=== PATIENT | female | born 1995 | race African-American/Black ===

== ENCOUNTER 2017-08-11 12:54 | Emergency (ER) | payer MEDICAID, OTHER ==
[2017-08-11 14:56] LABS: ADD MAN DIFF? NO
[2017-08-11] MEDS: KETOROLAC 30 MG INJ IV (15:02)
[2017-08-11] MEDS: DIPHENHYDRAMINE 50 MG INJ IV (15:02)
[2017-08-11] MEDS: METOCLOPRAMIDE 10 MG INJ IV (15:02)
[2017-08-11 15:03] LABS: BASOPHILS % 0.4 % (0.0-2.0); EOSINOPHILS # 0.1 10^3/ul (0.0-0.5); EOSINOPHILS % 0.5 % (0.0-7.0); HEMOGLOBIN 14.8 g/dl (12.0-16.0); LYMPHOCYTES # 1.6 10^3/ul (0.8-2.9); LYMPHOCYTES % 17.5 % (15.0-51.0); MEAN CORPUSCULAR HEMOGLOBIN 27.7 pg (29.0-33.0); MEAN CORPUSCULAR HGB CONC 32.9 g/dl (32.0-37.0); MEAN CORPUSCULAR VOLUME 84.1 fl (82.0-101.0); MEAN PLATELET VOLUME 11.3 fl (7.4-10.4); MONOCYTE # 0.7 10^3/ul (0.3-0.9); MONOCYTES % 7.1 % (0.0-11.0); NEUTROPHIL # 6.8 10^3/ul (1.6-7.5); NEUTROPHILS % 74.2 % (39.0-77.0); PLATELET COUNT 259 10^3/UL (140-415); RED BLOOD COUNT 5.35 10^6/ul (4.20-5.40); RED CELL DISTRIBUTION WIDTH 19.1 % (11.5-14.5)
[2017-08-11 15:03] LABS: WHITE BLOOD COUNT 9.1 10^3/ul (4.8-10.8)
[2017-08-11] MEDS: SOD CHLORIDE 0.9% 1,000 ML IV (15:03)
[2017-08-11 15:58] LABS: ANION GAP 12 (8-16); BLOOD UREA NITROGEN 13 mg/dl (7-20); CALCIUM 9.3 mg/dl (8.4-10.2); CARBON DIOXIDE 29 mmol/L (21-31); CHLORIDE 108 mmol/L (97-110); CREATININE 0.85 mg/dl (0.44-1.00); GLUCOSE 89 mg/dl (70-220); POTASSIUM 4.5 mmol/L (3.5-5.1); SODIUM 144 mmol/L (135-144)
== END 2017-08-11 18:56 | disposition home or self-care (01) ==
LOC: FTE 12:54
DX: R53.1 Weakness (principal)
CPT/HCPCS: 36415; 70450; 71045; 80048; 85025; 93005; 96374; 96375; 99285-25

== ENCOUNTER → 2017-11-03 | Outpatient (CLI) | payer SELFPAY | END | disposition home or self-care (01) | LOC: EKG 10:15 | DX: Z01.818 Encounter for other preprocedural examination (principal) | CPT/HCPCS: 93005 ==